=== PATIENT | female | born 1960 | race Caucasian/White ===

== ENCOUNTER 2018-04-30 08:30 | Outpatient (RCR) | payer BC, SELFPAY ==
--- NOTE | 2018-04-10 10:58 | HP.PTEVAL ---
Patient's Visit Information GERMAIN WALKER is a 57 year old F referred to Physical Therapy by Ham Best MD with a diagnosis of LEFT KNEE PAIN. Date of Evaluation: 04/10/18 Physical Therapist: Christina Sweeney PT, Cert MDT - Visit Plan Frequency: 2-3x /Week Duration: 4-6 Weeks Plan: AQUATIC THERAPY FOR LEFT LE PARADA RELEIF, ROM, STRETCHING AND STRENGTHENING. 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 CURRENTLY NO OFF WORK. PATIENT REPORTS SHE AND HER ARE VERY ACTIVE AND WALK AT THE [employer], RIDE BIKES, ETC. Disability: NO. Present symptoms: LEFT KNEE PAIN. Present since: ABOUT 6 WEEKS AGO. Pain Scale: WORST 10/10, LEAST 1/10. Currently: 10/18. Commenced as a result of: NO APPARENT REASON. Symptoms at onset: LEFT KNEE - SAME. Worse: SITTING, WALKING, STANDING, TRYING KNEEL, GETTING OUT OF A CHAIR, GOING UP AND DOWN STEPS. Better: FIRST THING IN THE MORNING. Disturbed sleep: YES. Previous history/Previous treatment: UNREMARKABLE FOR LEFT KNEE. THIS EPISODE HAD A SHOT (NOT EXCACTLY SURE WHAT) BY HAM SINGH [employer] CLEANING AND ANNEALING BUT DIDN'T HELP. PAIN PILLS ALSO HAVEN'T HELPED. Gait: PATIENT REPORTS DISTANCE LIMITED STANDING AND WALKING AND LIMPING DUE TO EXCRUTIATING PAIN IN LEFT KNEE. NO ASSISTIVE DEVICES. Accidents: NO. Unexplained weight loss: NO. Imaging: LEFT KNEE RECENT X-RAY SHOWING VERY MINIMAL ARTHRITIS PER PATIEINT REPORT. PMH: UNREMARKABLE. Recent major surgery: RIGHT KNEE MENISCUS SURGERY. LEFT FOOT TENDON REPAIR. PLOF (Prior Level of Function): UNLIMITED. OTHER: TRYING TO STAY OFF OF FEET AND REST IT HASN'T HELPED. - Objective THIS PATIENT AMBULATES INDEP'LY INTO PT LIMPING ON THE LLE WITHOUT ANY ASSISTIVE DEVICES. HER SITTING POSTURE IS POOR. HER STANDING POSTURE IS FAIR. SHE HAS A REDUCED LUMBAR LORDOSIS BUT NO RELEVENT LATERAL SHIFT. ACTIVE CORRECTION OF HER SITTING POSTURE HAS NO EFFECT ON HER KNEE PAIN AND SHE DOES NOT HAVE C/O BACK PAIN OR LE NUMBESS OR TINGLING. CORE STRENGTH IS FAIR. RIGHT LE STRENTH IS 5/5 WITH MMT'ING. LLE: HIP 4/5, KNEE EXT 3+/5, KNEE FLEX 3+/5. ANKLE 5/5. ROM: RIGHT KNEE ROM = FULL EXT TO 118 DEG FLEX. LEFT KNEE = FULL EXT TO 104 DEG FLEX WITH END RANGE PAIN. PATIENT HAS MODERATE EDEMA LOCALIZED TO THE LEFT KNEE. DURAL SIGNS: KIERRA LE DURAL SIGNS ARE NEGATIVE. SPECIAL TESTS: ACL, PCL, MCL AND LCL TESTING IS NEGATIVE. - Goals Goal 1:: DECREASE C/O LEFT KNEE PAIN Goal Time Frame: 4-6 Weeks Goal 2:: INCREASE FUNCTIONAL ROM OR LEFT KNEE Goal Time Frame: 4-6 Weeks Goal 3:: INCREASE FUNCTIONAL STRENGTH LEFT LLE Goal Time Frame: 4-6 Weeks Goal 4:: INEP HEP - Rehabilitation Potential Rehabilitation Potential: Fair - Anticipated Interventions Patient/Client Instruction: Educate patient on: Condition, Plan of Care, Risk Factors, Benefits of Fitness Program For the Purpose of:: To improve self management Therapeutic Exercise to Include: Strength training, Body mechanics, Postural training, In an aquatic setting, Passive ROM, Active ROM For the Purpose of:: To decrease pain, To increase ROM, To improve muscle performance and motor function, To increase tolerance to activity/condition/position, To improve ability of physical actions for home/community/work/leisure, To improve gait and locomotor functions Thank you for the opportunity to evaluate your patient. For Medicare and Medicare HMO plans, please review the plan of care and approve it. It will need to be FAXED BACK to us at [phone] for Medicare purposes. For Medicare only, by signing this I certify the plan of care. Please let me know if there are questions or concerns regarding this plan of care. Physician Signature: Date:
--- NOTE | 2018-04-30 09:01 | HP.PTDCSUM ---
HP - PT D/C Summary It has been my pleasure to treat GERMAIN WALKER under orders from Gianluca Best MD, for the diagnosis of LEFT KNEE PAIN for a total of 10 visit(s). Discharge Date: Please see the following information for a summary of their discharge status. - Subjective Subjective: The knee is not a lot better- she has been disappointed. In the water it did not really bother her, it was more when she got out- she did not have pain relief more than an hour. when she would go to the work after therapy she would have severe pain. Saw the PCP who referred her to Steven Dixon- who she sees tomorrow. - Pain left knee Pain Intensity (Out of 10): 7 - Objective Objective/Function: Posture: good throughout session. Gait: antalgic- decreased stance on the left le with poor heel/toe pattern. Palpation: tender along medial and lateral joint line. ROM: 5-115 degrees with pain at end range extn. Strenght: Ankle: 5/5, Knee: 5/5, Hip:4+/5 Core: fair. Flex: HS: severe - Goals Goal 1:: DECREASE C/O LEFT KNEE PAIN Goal Progress: Not Progressing Goal 2:: INCREASE FUNCTIONAL ROM OR LEFT KNEE Goal Progress: Not Progressing Goal 3:: INCREASE FUNCTIONAL STRENGTH LEFT LLE Goal Progress: Not Progressing Goal 4:: INEP HEP Goal Progress: Goal Met - Plan Plan: Follow up with ortho- d/c at this time. - D/C Information If there are questions or concerns regarding this patient's physical therapy, please feel free to call me at [phone]. Thank you for the referral of this patient. Sincerely, Karley Carrasquillo DPT
== END 2018-04-30 19:00 | disposition home or self-care (01) ==
LOC: PT 08:30
PROVIDERS: Family Provider Nurse Practitioner Family; PCP Nurse Practitioner Family; Referring Provider Nurse Practitioner Family; Visit Provider Nurse Practitioner Family
DX: M25.562 Pain in left knee (principal)
CPT/HCPCS: 97113; 97161; 97164

== ENCOUNTER 2018-12-08 08:30 | Outpatient (RCR) | payer BC, SELFPAY ==
--- NOTE | 2018-09-16 17:01 | HP.PTEVAL_ITS ---
Patient's Visit Information GERMAIN WALKER is a 58 year old F referred to Physical Therapy by NICANOR LIU with a diagnosis of Left TKR 09/10/18. Date of Evaluation: 09/16/18 Physical Therapist: Kraley Carrasquillo DPT - Visit Plan Frequency: 2-3x /Week Duration: 4 Weeks Plan: Left TKR 09/10/18- Focus on LE ROM, strength and functional mobility. HEP given at initial evaluation: weight shifting standing at counter, HR/TR standing at counter, seated bolster extension stretching, seated heel slides, supine heel slides and quad sets. Educated on importance of slow long sustained holds with ROM and edema management. - Subjective Findings: Patient reports left TKR on the 09/10/[address] Liu. Was in the hospital for 2 days and then came home. 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 Ranch home with 3 stairs to enter and a basement for shower with a single hand rail. Is using a chair in the upstairs bathtub. is home with her. Pain is located along the entire joint- no radiating pain. Worst: 8/10 Agg: being in one position for to long Best: 0/10 Eases: pain meds- has not needed the Tylnol in between but is on meds every 6 hours, ice machine. No N/T in the toes. Describes the pain as bad achying. Sleep: disturbed- usually a side sleeper- currently on back- couch/reclyner. No AD prior to surgery. Goals: get back to all her normal ADL's- return to work date is end december but subject to change. Has not seen the MD- sees him next Saturday- Unsure if she has chavo or glue on the incision. Takes the bandage off September 18, 2018. PMHx: none Meds: none prior to surgery and is now on a baby asprin and a pain med - Objective Posture: FH, RS, increased kyphosis. Gait: antalgic- step to pattern with FWW- slow santa and foot flat strike. SLS: WS but unable to SLS without UE A and pain. HR/TR: able without incidence but does use UE A for support. Stairs: asc/desc 8 non recip with 1 HR- slow. Observation: incision under bandage- no seepage of redness- educated on s/s of infection. Palpation: tender throughout. Edema: moderate in left knee. ROM: 15-75 degrees with pain at end range. Strength: ankle: 5/5 Knee: quad set visible SLR: moderate lag Hip: 4/5 Core: fair. Flex: Gastroc: moderate Hamstring: severe. Mobility: Sit to stand: requires UE A- supine to sit and sit to spine does I - Goals Goal 1:: Patient will be I with HEP and progression Goal Time Frame: 4-6 Weeks Goal 2:: Patient will ambulate >300 feet no AD and normalized pattern Goal Time Frame: 4-6 Weeks Goal 3:: Patient will demo 0-115 degrees of ROM in the left knee Goal Time Frame: 4-6 Weeks Goal 4:: Patient will asc/desc 8 stairs recip with no HR and good control Goal Time Frame: 4-6 Weeks - Rehabilitation Potential Physical Therapy Diagnosis: Patient presents with hypomobility- she has decreased ROM, strength and muscular endurance s/p left TKR leading to abnormal gait and decreased ability to I perform ADL's. Rehabilitation Potential: Good - Anticipated Interventions Patient/Client Instruction: Educate patient on: Benefits of Fitness Program Therapeutic Exercise to Include: Strength training, Endurance training, Balance training, Coordination, Agility training, Body mechanics, Postural training, Flexibilty training, Gait and locomotor training, Passive ROM, Active ROM, Dynamic Lumbar Stabilization For the Purpose of:: To improve muscle performance and motor function Functional Training to Include: ADL Training, Gait training For the Purpose of:: To improve ability to perform ADL's Manual Therapy Techniques to Include: Passive ROM, Soft tissue mobilization For the Purpose of:: To increase ROM TENS: Yes Cryotherapy (ice pack, ice massage): Yes Thermo therapy (hot pack): Yes Ultrasound (thermal/non thermal): No Thank you for the opportunity to evaluate your patient. For Medicare and Medicare HMO plans, please review the plan of care and approve it. It will need to be FAXED BACK to us at [phone] for Medicare purposes. For Medicare only, by signing this I certify the plan of care. Please let me know if there are questions or concerns regarding this plan of care. Physician Signatur e: Date:
--- NOTE | 2018-10-20 15:26 | HP.PTREVAL ---
NICANOR LIU, It has been my pleasure to treat GERMAIN WALKER over the last 14 visits for Left TKR 09/10/18. Please see the progress note below for an update on the physical therapy plan of care! Subjective: Patient reports that she is frustrated with her leg. She was really sore after the weekend and feels she is not going as fast as she wants to. Worst: 910 Best: 10 Is still taking pain meds. Goes back to MD tomorrow. Objective/Function: Posture: FH, RS, increased kyphosis. Gait: antalgic- step through pattern with cane- slow santa and foot flat strike. SLS: WS but unable to SLS without UE A and pain. HR/TR: able without incidence but does use UE A for support. Stairs: asc/desc 8 non recip with 1 HR- slow. Observation: incision healing well Palpation: tender throughout. Edema: mild in left knee. ROM: 20-95 degrees with pain at end range. Strength: ankle: 5/5 Knee: quad set visible SLR: moderate lag due to decresed ROM Hip: 4/5 Core: fair. Flex: Gastroc: moderate Hamstring: severe. Mobility: Sit to stand: can perform with UE A Plan Plan: Focus on extension and flexion ROM Goals Goal 1:: Patient will be I with HEP and progression Goal Time Frame: 4-6 Weeks Goal Progress: Progressing Goal 2:: Patient will ambulate >300 feet no AD and normalized pattern Goal Time Frame: 4-6 Weeks Goal Progress: Progressing Goal 3:: Patient will demo 0-115 degrees of ROM in the left knee Goal Time Frame: 4-6 Weeks Goal Progress: Progressing Goal 4:: Patient will asc/desc 8 stairs recip with no HR and good control Goal Time Frame: 4-6 Weeks Goal Progress: Progressing Anticipated Interventions Patient/Client Instruction: Educate patient on: Benefits of Fitness Program Therapeutic Exercise to Include: Strength training, Endurance training, Balance training, Coordination, Agility training, Body mechanics, Postural training, Flexibilty training, Gait and locomotor training, Passive ROM, Active ROM, Dynamic Lumbar Stabilization For the Purpose of:: To improve muscle performance and motor function Functional Training to Include: ADL Training, Gait training For the Purpose of:: To improve ability to perform ADL's Manual Therapy Techniques to Include: Passive ROM, Soft tissue mobilization For the Purpose of:: To increase ROM TENS: Yes Cryotherapy (ice pack, ice massage): Yes Thermo therapy (hot pack): Yes Ultrasound (thermal/non thermal): No Please do not hesitate to contact me at [phone] by phone or if you have questions or concerns regarding this new plan of care! Sincerely, GEN KingT
--- NOTE | 2018-12-08 10:00 | HP.PTDCSUM ---
HP - PT D/C Summary It has been my pleasure to treat GERMAIN WALKER under orders from NICANOR LIU, for the diagnosis of Left TKR 09/10/18 for a total of 37 visit(s). Discharge Date: Please see the following information for a summary of their discharge status. - Subjective Subjective: Pt. reports she is feeling great & feels she is ready to be D/C and cont. exercises on her own at gym 3x/week, - Pain L knee Pain Intensity (Out of 10): 0 - Overall Improvement % Improvement: 100 - Objective Objective/Function: Posture: FH, RS, increased kyphosis. Gait: No deviations noted. SLS: 15 sec SLS without UE A and pain. HR/TR: able without incidence but does use UE A for support. Stairs: no deviations noted asc/desc w/ B HR use. When asked to not use HR - reciprocal pattern & no deviations noted, just a little slower. Observation: incision healing apppropriately. Palpation: NNTP t/o. ROM: 0-115 degrees with pain at end range. Strength: ankle: 5/5 Knee: 4+/5 Hip: 4+/5 Core: fair. Flex: Gastroc: moderate Hamstring: mod. Mobility: Sit to stand: no UE support, no issues performing - Goals Goal 1:: Patient will be I with HEP and progression Goal Progress: Progressing Goal 2:: Patient will ambulate >300 feet no AD and normalized pattern Goal Progress: Progressing Goal 3:: Patient will demo 0-115 degrees of ROM in the left knee Goal Progress: Progressing Goal 4:: Patient will asc/desc 8 stairs recip with no HR and good control Goal Progress: Progressing - Plan Plan: 12/08/18 Pt. D/C w/ HEP to perform at home gym independently. - D/C Information If there are questions or concerns regarding this patient's physical therapy, please feel free to call me at [phone]. Thank you for the referral of this patient. Sincerely, Karley Carrasquillo DPT
== END 2018-12-08 19:00 | disposition home or self-care (01) ==
LOC: PT 08:30
PROVIDERS: Family Provider Nurse Practitioner Family; PCP Nurse Practitioner Family
DX: M87.9 Osteonecrosis, unspecified (principal)
CPT/HCPCS: 97014; 97110; 97140; 97161; 97164; G0283

== ENCOUNTER 2020-05-26 14:42 | Outpatient (RCR) | payer OTHER, SELFPAY ==
[2020-05-26] MEDS: COVID-19 VACC, MRNA(PFIZER)/PF 30 MCG/0.3 ML SYRINGE IM (13:34)
[2020-06-16] MEDS: COVID-19 VACC, MRNA(PFIZER)/PF 30 MCG/0.3 ML SYRINGE IM (13:36)
== END 2020-05-26 23:59 ==
LOC: IMMUN 14:42
PROVIDERS: PCP Nurse Practitioner Family; Visit Provider Family Medicine
DX: Z23 Encounter for immunization (principal)
CPT/HCPCS: 0001A; 0002A; 91300

== ENCOUNTER 2021-03-21 12:48 | Outpatient (CLI) | payer BC, SELFPAY | END 2021-03-21 23:59 | disposition short-term general hospital (02) | LOC: PSN 12:49 | PROVIDERS: PCP Nurse Practitioner Family; Referring Provider Nurse Practitioner Family; Visit Provider Nurse Practitioner Family | DX: R05.9 Cough, unspecified (principal) | CPT/HCPCS: 87635; C9803; U0003; U0005 ==

== ENCOUNTER 2022-07-26 20:18 | Emergency (ER) | payer OTHER, BC, SELFPAY ==
[2022-07-26 20:19] VITALS: BP 138/77; PULSE 72; RESP 16; TEMP 36.9; O2SAT 99; BMI 32.1
--- NOTE | 2022-07-26 20:27 | RAD_ITS ---
STUDY: X-RAY - RIGHT HUMERUS REASON FOR EXAM: Female, 62 years old. INJURY TECHNIQUE: AP and lateral view(s) of the humerus. COMPARISON: None. FINDINGS: Normal visualized humerus. There is no demonstrated fracture or osseous destructive process. There is no demonstrated soft tissue abnormality. RAD/Humerus min 2 Views IMPRESSION: Normal x-ray examination of the humerus. Electronically Signed: Jj Suarez MD at 20:41 EDT ,
--- NOTE | 2022-07-26 21:24 | EDS_ITS ---
HPI History of Present Illness Chief Complaint: Upper Extremity Injury Narrative Narrative: 62-year-old female presenting with right arm pain. She states she tripped over the sweeper in the cleaning closet and fell over hitting her cleaning cart. She had a right mid arm on there. She denies head injury or LOC. She is moving her arm without difficulty. She denies numbness or tingling. She does have some pain in the right tricep area. PFSH PFSH Allergy/AdvReac Type Severity Reaction Status Date / Time No Known Allergies Allergy Verified 07/26/22 20:24 Social History Smoking Status: Never smoker ROS ROS ED Constitutional Constitutional ED: Denies chills, fever(s) or sweats Eyes Eyes: Denies blurry vision or change in vision ENT ENT ED: Denies ear pain or sore throat Cardiovascular Cardiovascular: Denies chest pain, palpitations or racing heartbeat Respiratory/Chest Respiratory/Chest: Denies cough, dyspnea or sputum Gastrointestinal Gastrointestinal: Denies abdominal pain, constipation, diarrhea, nausea or vomiting Genitourinary Genitourinary ED: Denies dysuria, hematuria or urinary frequency Musculoskeletal Musculoskeletal: Reports other Details: Right arm pain ; Denies arthralgias, myalgias or neck pain Integumentary Denies abscess, Abrasions or rash Neurologic Neurologic: Denies headache(s), paresthesias or weakness Psychiatric Psychiatric: Denies anxiety, depression, suicidal ideation or suicidal thoughts Endocrine Endocrinology: Denies polydipsia or polyuria EXAM Physical Exam Const Vital Signs: 07/26/22 20:19 Temperature 98.4 F Temperature Source Temporal Pulse Rate 72 Respiratory Rate 16 Blood Pressure 138/77 H Blood Pressure Mean 97 Pulse Ox 99 Oxygen Delivery Method Room Air Positive well nourished HEENT Reports moist mucous membranes normocephalic and atraumatic Resp normal respiratory effort Cardio regular rate and regular rhythm Extremity Extremity Narrative: Tenderness to palpation in the right tricep area August. There is no bony deformity. Patient able to move her right shoulder and right elbow without deficit. Neuro oriented x3 and CN's II-XII intact bilaterally Sensorium / Orientation: alert Psych mental status grossly normal MDM MDM MDM Narrative Medical decision making narrative: Patient presented for mechanical fall. She has pain in the right humerus region. No bruising or swelling. No deformities. Patient using arm well. Obtain x-ray of the right humerus which is does not show any acute fracture on my interpretation. The radiologist interprets this and agrees. Patient given ibuprofen for pain. I feel she is stable to discharge home and follow-up with the [facility]. Impression: 1. mechanical fall 2. Right arm contusion Radiography Diagnostic Testing: Clinical Impression(s) from Imaging Studies Humerus X-Ray 07/26/22 20:27 IMPRESSION: Normal x-ray examination of the humerus. Electronically Signed: Jj Suarez MD at 20:41 EDT Reading Location ID and State: [facility] / [place] , Service support , Discharge Plan Triage Chief Complaint: Upper Extremity Injury ED Provider: Ranjeet Pichardo Dx/Rx/DC Orders Instructions: ED Contusion, Upper Extremity Primary Care Provider: Gianluca Glynn NP Referrals: Gianluca Glynn [employer] ENGINEERING PROFESSIONAL, CIVIL ENGINEERING PROFESSIONAL-C [Primary Care Provider] - Disposition Disposition: Home, Self Care
[2022-07-26] MEDS: Ibuprofen 600 MG Tablet PO (21:39)
== END 2022-07-26 21:44 | disposition home or self-care (01) ==
PROVIDERS: Emergency Provider Student in an Organized Health Care Education/Training Program; PCP Nurse Practitioner Family; Visit Provider Student in an Organized Health Care Education/Training Program
DX: S40.021A Contusion of right upper arm, initial encounter (principal); W01.198A Fall on same level from slipping, tripping and stumbling with subsequent striking against other object, initial encounter
CPT/HCPCS: 73060; 99282

== ENCOUNTER → 2022-08-15 | Outpatient (CLI) | payer OTHER, SELFPAY ==
--- NOTE | 2022-08-15 06:45 | MRI_ITS ---
STUDY: MRI RIGHT SHOULDER REASON FOR EXAM: Female, 62 years old. Upper arm contusion. Evaluate for biceps tendon rupture. TECHNIQUE: Standardized fat and water weighted pulse sequences were obtained in all 3 orthogonal planes. Right humeral x-rays dated July 26, 2022. COMPARISON: None. FINDINGS: Full-thickness full width retracted supraspinatus tendon tear with the tendon retracted approximately 3.7 cm from its insertion site (coronal series 6 images 15-19). Longitudinal intrasubstance tear of the distal supraspinatus with intramuscular ganglion cyst dissecting distally behind the teres minor muscle (coronal series 6 images 14-20, axial series 4 images 6-18). Infraspinatus tendinosis with marked increased signal intensity, articular and bursal surface fraying and thinning without a full-thickness tear (coronal series 6 images 10-14). Marked subscapularis tendinosis with an intrasubstance longitudinal partial tear (axial series 4 images 5-10). Normal teres minor tendon. Normal supraspinatus muscle. Normal subscapularis muscle. Infraspinatus and teres minor muscle strains (coronal series 6 image 20). Moderate thinning of the articular cartilage of the glenohumeral joint with a moderate to large glenohumeral joint effusion (axial series 4 images 5-14). Cystic change in the humeral head (axial series 4 image 7). Superior migration of the humeral head. Normal biceps labral complex. Torn, retracted long head of the biceps tendon (axial series 4 images 4-13). Normal labrum. Normal capsulo- ligamentous complex. Normal rotator interval. Small AC joint effusion with AC joint hypertrophy and narrowing of the subacromial base (coronal series 6 images 14-20). There is a Type II morphology (curved), with a neutral orientation. Fluid in the subacromial-subdeltoid bursal (coronal series 6 image 16). Normal visualized coracohumeral and coracoacromial ligaments. Normal quadrilateral space. Normal axillary space. Normal deltoid muscle. Normal trapezius muscle. MRI/Upper Ext Joint Only(Routine) IMPRESSION: Full-thickness full width retracted supraspinatus tendon tear with large dissecting intramuscular cyst as described. Infraspinatus tendinosis without a full-thickness tear. Subscapularis tendinosis with intrasubstance longitudinal partial tear without a full-thickness tear. Infraspinatus and teres minor muscle strains. Moderate thinning of the articular cartilage of the glenohumeral joint. Cystic changes in the humeral head. Superior migration of the humeral head. Torn, retracted long head of the biceps tendon. Small AC joint effusion with fluid in the subacromial-subdeltoid bursa. Electronically Signed: Antwan Dorsey MD at 13:13 EDT ,
== END | disposition home or self-care (01) ==
LOC: MRI 08-16 16:54
PROVIDERS: PCP Nurse Practitioner Family; Referring Provider Family Medicine; Visit Provider Family Medicine
DX: S40.021A Contusion of right upper arm, initial encounter (principal)
CPT/HCPCS: 73221

== ENCOUNTER → 2023-04-12 | Outpatient (CLI) | payer OTHER, SELFPAY ==
--- NOTE | 2023-04-12 06:34 | MRI_ITS ---
STUDY: MRI RIGHT SHOULDER REASON FOR EXAM: Female, 62 years old. Supraspinatus, right long head biceps tear. TECHNIQUE: Standardized fat and water weighted pulse sequences were obtained in all 3 orthogonal planes. COMPARISON: Right shoulder MRI dated 08/15/2022. FINDINGS: There are new postoperative changes from prior rotator cuff repair surgery, with new anchors in the humeral head. There is a suspected 6 x 3 mm full-thickness tear of the supraspinatus tendon (coronal T2 series 7 images 10-11; sagittal T2 series 8 images 8-9). There is infraspinatus and subscapularis tendinosis. Normal teres minor tendon. There is mild atrophy and fatty infiltration of the supraspinatus and infraspinatus muscles. Normal subscapularis muscle. Normal teres minor muscle. There is a small glenohumeral joint effusion. Intact humeral head and visualized proximal humerus. Normal labrum. Normal capsulo-ligamentous complex. The bicipital groove is empty, compatible with remote long biceps tendon tear versus biceps tenodesis. There are postoperative changes related to prior acromioplasty/distal clavicle resection.. There is a Type II morphology (curved), with a neutral orientation. There is a moderate amount of subacromial-subdeltoid bursal fluid. Normal visualized coracohumeral and coracoacromial ligaments. Normal quadrilateral space. Normal axillary space. Normal deltoid muscle. Normal trapezius muscle. MRI/Upper Ext Joint Only(Routine) IMPRESSION: Suspected 6 x 3 mm full-thickness tear of the supraspinatus tendon. Infraspinatus and subscapularis tendinosis. Mild atrophy and fatty infiltration of the supraspinatus and infraspinatus muscles. Moderate amount of subacromial-subdeltoid bursal fluid. Small glenohumeral joint effusion. Remote long biceps tendon tear versus biceps tenodesis. Electronically Signed: Shmuel Page MD at 8:49 EST ,
== END | disposition home or self-care (01) ==
LOC: MRI 06:17
PROVIDERS: PCP Nurse Practitioner Family; Referring Provider Family Medicine; Visit Provider Family Medicine
DX: S46.011A Strain of muscle(s) and tendon(s) of the rotator cuff of right shoulder, initial encounter (principal); S46.101A Unspecified injury of muscle, fascia and tendon of long head of biceps, right arm, initial encounter
CPT/HCPCS: 73221